=== PATIENT | male | born 1940 | race Caucasian/White ===

== ENCOUNTER 2017-06-24 15:25 | Emergency (ER) | payer OTHER ==
[2017-06-24 15:32] VITALS: BMI 28.1
--- NOTE | 2017-06-24 16:53 | PDOC ---
Attending Attestation - Resident Resident Name: Ernesto Cox - ED Attending Attestation I have performed the following: I have examined & evaluated the patient, The case was reviewed & discussed with the resident, I agree w/resident's findings & plan, Exceptions are as noted - HPI HPI: 06/24/17 16:53 Skin Tear - Physicial Exam PE: 06/24/17 16:53 Right Forearm - Medical Decision Making 06/24/17 16:53 Debriedment and DC Home
--- NOTE | 2017-06-24 17:10 | PDOC ---
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 The patient states that he tripped over the sidewalk and fell on his outstretched R hand. He has no complaints at all and has his R elbow bandaged. He has no LOC, no lightheadedness before or aura. He had no disorientation after the fall. The fall was witnessed. The patient is visiting from [place] and will be staying in [place] for 1 week. He will be moving to a long-term in [place]. All: NKDA Social: none Surg: brain aneurysm Past History - Past Medical History Anemia: Yes Cancer: Yes (BLADDER PROSTATE) Cardiac Disorders: Yes ([place]) Dialysis: Yes GI Disorders: Yes (ULCERATIVE COLITIS) Other medical history: HEP C - Surgical History Cardiac Surgery: Yes - Psycho/Social/Smoking Cessation Hx Suicidal Ideation: No Smoking History: Never smoked Information on smoking cessation initiated: No Review of Systems - Review of Systems Able to Perform ROS?: Yes Is the patient limited Kinyarwanda proficient: No Constitutional: No: Chills, Fever HEENTM: No: Blurred Vision, Double Vision Respiratory: No: Shortness of Breath Cardiac (ROS): No: Chest Pain ABD/GI: No: Abdominal Distended, Constipated, Diarrhea, Nausea, Vomiting Musculoskeletal: No: Back Pain, Joint Pain, Muscle Weakness Integumentary: Yes: Other (Elbow scrape) Neurological: No: Headache, Numbness, Tingling, Weakness *Physical Exam - Vital Signs Last Vital Signs Temp Pulse Resp BP Pulse Ox 97.5 F L 99 H 18 150/87 97 06/24/17 15:27 06/24/17 15:27 06/24/17 15:27 06/24/17 15:27 06/24/17 15:27 - Physical Exam General Appearance: Yes: Nourished, Appropriately Dressed. No: Apparent Distress HEENT: positive: Normal Voice, Hearing Grossly Normal Respiratory/Chest: positive: Lungs Clear, Normal Breath Sounds. negative: Chest Tender, Respiratory Distress Cardiovascular: positive: Regular Rhythm, Regular Rate, S1, S2. negative: Tachycardia, Diastolic Murmur, Systolic Murmur Gastrointestinal/Abdominal: positive: Flat, Soft. negative: Tender, Guarding, Rebound, Tenderness Extremity: positive: Normal Inspection, Other (Skin peeling on R elbow.) Integumentary: positive: Bruising Neurologic: positive: Fully Oriented, Normal Mood/Affect, Normal Response, Motor Strength 5/5 Procedures - Laceration/Wound Repair Right Elbow Wound Length: 2.6 to 5.0 cm Wound Explored: clean Wound's Depth, Shape: superficial Irrigated w/ Saline: No Betadine Prep: No Wound Debrided: minimal (Cut of skin) Wound Repaired With: Dermabond (Tegaderm) Layer Closure: No Medical Decision Making - Medical Decision Making 06/24/17 17:11 Patient is a 76M s/p fall not on blood thinner with no LOC and no head trauma. I have cut off the skin, applied bacitracin, and covered the abrasion with tegaderm. I have instructed him to follow up at his [facility] or return if he has fever, chills, discomfort, redness, or pus from the area. *DC/Admit/Observation/Transfer Diagnosis at time of Disposition: Fall Qualifiers: Encounter type: initial encounter Qualified Code(s): W19.XXXA - Unspecified fall, initial encounter - Discharge Dispostion Disposition: HOME Condition at time of disposition: Improved Admit: No - Patient Instructions Printed Discharge Instructions: How to Prevent Falls Additional Instructions: Please return to the ER if symptoms persist, worsen, or new symptoms arise. Please return if you have redness, itching, or pain at the site of the abrasion. Please return if you develop fever or chills or extreme pain. - Attestations Physician Attestion: 06/24/17 17:13 I, Dr. Ernesto Cox, attest that this document has been prepared under my direction and personally reviewed by me in its entirety. I further attest, that it accurately reflects all work, treatment, procedures and medical decision -making performed by me.
[2017-06-24 17:38] VITALS: BP 145/75; PULSE 77; TEMP 98.1
== END 2017-06-24 17:35 | disposition home or self-care (01) ==
LOC: JER 15:25
PROC: 0HQDXZZ Repair Right Lower Arm Skin, External Approach (ICD-10-PCS; principal; 2017-06-24)
DX: S51.011A Laceration without foreign body of right elbow, initial encounter (principal); W18.39XA Other fall on same level, initial encounter; Y93.89 Activity, other specified; Y92.410 Unspecified street and highway as the place of occurrence of the external cause; Z99.2 Dependence on renal dialysis; Z85.46 Personal history of malignant neoplasm of prostate; Z85.51 Personal history of malignant neoplasm of bladder; I25.2 Old myocardial infarction; I48.91 Unspecified atrial fibrillation
CPT/HCPCS: 99282-25